=== PATIENT | male | born 1985 | race American Indian/Alaskan Native ===

== ENCOUNTER 2020-02-28 12:34 | Inpatient (IN) | payer BC, OTHER ==
--- NOTE | 2020-02-28 12:57 | Event Note ---
ED Screening Note ED Screening Note: right sided abd pain that began 3 days ago N/V no diarrhea felt like he was having constipation but was able to have a BM with the laxative no abd surgical history no fever, no blood in stool or vomit no pain or swelling in testicles no dysuria PMHx none no allergies non smoker +ETOH, 1-2 a month This initial assessment/diagnostic orders/clinical plan/treatment(s) is/are subject to change based on patients health status, clinical progression and re- assessment by fellow clinical providers in the ED. Further treatment and workup at subsequent clinical providers discretion. Patient/guardian urged not to elope from the ED as their condition may be serious if not clinically assessed and managed. Initial orders include: labs
[2020-02-28] MEDS ORDERED: ONDANSETRON 4 MG/2 ML INJ IV ONE (13:22)
[2020-02-28] MEDS ORDERED: fentaNYL 100 MCG/2 ML INJ IV ONE (13:22)
[2020-02-28] MEDS ORDERED: SODIUM CHLORIDE 0.9% 1000 ML 1,000 ML IV ONE ×2 (13:32→15:35)
[2020-02-28 13:34] LABS: Hematocrit 40.6 % (35.5-45.6); Hemoglobin 12.7 gm/dl (11.8-15.2); Mean Corpuscular HGB Conc 31 % (32-34); Mean Corpuscular Volume 79 fl (84-94); Platelet Count 277 K/mm3 (140-440); Red Blood Count 5.11 M/mm3 (3.65-5.03); Red Cell Distribution Width 14.2 % (13.2-15.2)
--- NOTE | 2020-02-28 13:36 | Emergency Department Report ---
HPI - General Chief Complaint: Abdominal Pain Time Seen by Provider: 02/28/20 12:56 - HPI HPI: Room 6 The patient is a 34-year-old male present with a chief complaint of abdominal pain. The patient states for the past 3 days he has had pain in the right lower quadrant of his abdomen. Patient states the pain is been constant described as sharp and pressure-like in nature. Patient states movement increases the pain. Patient admits to nausea vomiting and anorexia. Patient denies history of fever. Patient currently gives his pain a score of 7/10 ED Past Medical Hx - Past Medical History Previous Medical History?: No - Surgical History Past Surgical History?: Yes Additional Surgical History: Facial surgery - Family History Family history: no significant - Social History Smoking Status: Never Smoker Substance Use Type: None (Denies illicit drug use), Alcohol (Occasional) ED Review of Systems ROS: Stated complaint: ABDOMINAL PAIN Other details as noted in HPI Constitutional: no symptoms reported. denies: fever Eyes: denies: eye pain ENT: denies: throat pain Respiratory: no symptoms reported Cardiovascular: denies: chest pain Endocrine: no symptoms reported Gastrointestinal: abdominal pain, nausea, vomiting Genitourinary: denies: dysuria Musculoskeletal: denies: back pain Neurological: denies: headache Physical Exam - Physical Exam Vital Signs: Vital Signs 02/28/20 02/28/20 12:40 13:06 Temperature 98 F Pulse Rate 126 H Respiratory 18 Rate Blood Pressure 148/95 [Right] O2 Sat by Pulse 96 Oximetry Physical Exam: GENERAL: The patient is well-developed well-nourished male lying on stretcher not appearing to be in acute distress. [] HEENT: Normocephalic. Atraumatic. Extraocular motions are intact. Patient has moist mucous membranes. NECK: Supple. Trachea midline CHEST/LUNGS: Clear to auscultation. There is no respiratory distress noted. HEART/CARDIOVASCULAR: Regular. There is no tachycardia. There is no gallop rub or murmur. ABDOMEN: Abdomen is soft, with tenderness to palpation in the right lower quadrant. Positive Rovsing sign, positive obturator sign. Patient has normal bowel sounds. There is no abdominal distention. SKIN: There is no rash. There is no edema. There is no diaphoresis. NEURO: The patient is awake, alert, and oriented. The patient is cooperative. The patient has normal speech MUSCULOSKELETAL: There is no evidence of acute injury. ED Course Vital Signs 02/28/20 02/28/20 12:40 13:06 Temperature 98 F Pulse Rate 126 H Respiratory 18 Rate Blood Pressure 148/95 [Right] O2 Sat by Pulse 96 Oximetry - Consultations Consultation #1: 02/28/20 13:34 Surgery paged 02/28/20 13:[address] Zaldivar- requests noncontrasted CT abdomen pelvis to be performed expeditiously ED Medical Decision Making - Lab Data Result diagrams: 02/28/20 13:11 02/28/20 13:11 Laboratory Tests 02/28/20 02/28/20 13:11 13:11 WBC 21.8 H RBC 5.11 H Hgb 12.7 Hct 40.6 MCV 79 L MCH 25 L MCHC 31 L RDW 14.2 Plt Count 277 Sodium 130 L Potassium 3.6 Chloride 94.5 L Carbon Dioxide 28 Anion Gap 11 BUN 4 L Creatinine 0.6 L Estimated GFR > 60 BUN/Creatinine Ratio 7 Glucose 297 H Calcium 9.2 Total Bilirubin 1.70 H AST 12 ALT 13 Alkaline Phosphatase 90 Total Protein 7.8 Albumin 3.3 L Albumin/Globulin Ratio 0.7 Lipase 12 L - Radiology Data Radiology results: report reviewed (CT abdomen pelvis), image reviewed (CT abdomen pelvis) [place] [address] Cat Scan Report Signed Patient: ZAHIRA WARNER MR#: [id number] : 1985 Acct:[id number] Age/Sex: 34 / M ADM Date: 02/28/20 Loc: ED At [facility] Dr: Ordering Physician: DEAN PACHECO MD Date of Service: 02/28/20 Procedure(s): CT abdomen pelvis wo con Accession Number(s): [id number] cc: DEAN PACHECO MD CT ABDOMEN AND PELVIS WITHOUT CONTRAST INDICATION / CLINICAL INFORMATION: Right lower quadrant pain TECHNIQUE: Axial CT images were obtained through the abdomen and pelvis without IV contrast. All CT scans at this location are performed using CT dose reduction for ALARA by means of automated exposure control. COMPARISON: None available. FINDINGS: LOWER CHEST: Unremarkable LIVER: There is hepatic steatosis. GALLBLADDER/BILIARY TREE: The bladder is distended with extensive inflammatory changes surrounding the gallbladder. High-density material within the gallbladder likely reflects gallstones. PANCREAS: Unremarkable SPLEEN: Unremarkable ADRENALS: Unremarkable KIDNEYS / URETER: Tiny nonobstructing right renal calculus. No ureteral calculus or hydronephrosis. URINARY BLADDER: Unremarkable REPRODUCTIVE ORGANS: Unremarkable STOMACH / SMALL BOWEL: Stomach and small bowel are normal in caliber. No evidence of bowel inflammation. COLON: There is inflammatory stranding involving the colon at the hepatic flexure, which is favored to be reactive from process in the gallbladder. The appendix is normal in caliber. LYMPH NODES: No significant adenopathy. VASCULATURE: No significant abnormality. OTHER: No free air, free fluid, or focal fluid collection is identified. SKELETAL SYSTEM: No acute osseous findings. IMPRESSION: 1. Findings concerning for acute cholecystitis with Doppler distention and extensive inflammatory changes surrounding the gallbladder. High-density material within the gallbladder most likely represents cholelithiasis. Recommend correlation with right upper quadrant ultrasound. 2. Inflammatory stranding of the colon and hepatic flexure, likely reactive to process in the gallbladder. Signer Name: Dylon Howard MD Signed: 02/28/2020 2:16 PM Workstation Name: [id number] Transcribed By: PAUL Dictated By: DYLON CORREIA MD Electronically Authenticated By: DYLON CORREIA MD Signed Date/Time: 02/28/201415 DD/ 12 TD/TT: - Differential Diagnosis Appendicitis, renal colic, diverticulitis, partial small bowel obstruction Critical care attestation.: If time is entered above; I have spent that time in minutes in the direct care of this critically ill patient, excluding procedure time. ED Disposition Clinical Impression: Acute abdominal pain, Acute cholecystitis, Leukocytosis Disposition: DC-[id number] OP ADMIT IP TO THIS HOSP Is pt being admited?: Yes Does the pt Need Aspirin: No Condition: Fair Time of Disposition: 14:45 (Hospitalist paged (Dr. Johnston))
--- NOTE | 2020-02-28 14:20 | Cat Scan Report ---
CT ABDOMEN AND PELVIS WITHOUT CONTRAST INDICATION / CLINICAL INFORMATION: Right lower quadrant pain TECHNIQUE: Axial CT images were obtained through the abdomen and pelvis without IV contrast. All CT scans at this location are performed using CT dose reduction for ALARA by means of automated exposure control. COMPARISON: None available. FINDINGS: LOWER CHEST: Unremarkable LIVER: There is hepatic steatosis. GALLBLADDER/BILIARY TREE: The bladder is distended with extensive inflammatory changes surrounding th e gallbladder. High-density material within the gallbladder likely reflects gallstones. PANCREAS: Unremarkable SPLEEN: Unremarkable ADRENALS: Unremarkable KIDNEYS / URETER: Tiny nonobstructing right renal calculus. No ureteral calculus or hydronephrosis. URINARY BLADDER: Unremarkable REPRODUCTIVE ORGANS: Unremarkable STOMACH / SMALL BOWEL: Stomach and small bowel are normal in caliber. No evidence of bowel inflammati on. COLON: There is inflammatory stranding involving the colon at the hepatic flexure, which is favored t o be reactive from process in the gallbladder. The appendix is normal in caliber. LYMPH NODES: No significant adenopathy. VASCULATURE: No significant abnormality. OTHER: No free air, free fluid, or focal fluid collection is identified. SKELETAL SYSTEM: No acute osseous findings. IMPRESSION: 1. Findings concerning for acute cholecystitis with Doppler distention and extensive inflammatory kimmie nges surrounding the gallbladder. High-density material within the gallbladder most likely represents cholelithiasis. Recommend correlation with right upper quadrant ultrasound. 2. Inflammatory stranding of the colon and hepatic flexure, likely reactive to process in the gallbla dder. Signer Name: Robinson Howard MD Signed: 02/28/2020 2:16 PM Workstation Name: [id number]
[2020-02-28] MEDS ORDERED: PIPERACIL/TAZOBACTA 4.5/NS 100 4.5 GM/100 ML VIAL IV ONE (14:28)
[2020-02-28 14:30] LABS: Alanine Aminotransferase 13 units/L (7-56); Albumin 3.3 g/dL (3.9-5); Blood Urea Nitrogen 4 mg/dL (9-20); Calcium 9.2 mg/dL (8.4-10.2); Hemolysis Index 4
[2020-02-28 14:39] LABS: BUN/Creatinine Ratio 7
[2020-02-28 14:59] LABS: Basophils % (Manual) 0 % (0.0-1.8); Total Cells Counted 100
[2020-02-28 15:00] LABS: Platelet Estimate Consistent w Auto; RBC Morphology Normal
--- NOTE | 2020-02-28 15:02 | Consultation ---
History of Present Illness Consult date: 02/28/20 Reason for consult: abdominal pain - History of present illness History of present illness: 34 yo morbidly obese BM with 4-5 days of worsening right-sided abd pain assoc with nausea/vomiting. CT with acute cholecystitis. No medical problems Medications and Allergies Allergies Allergy/AdvReac Type Severity Reaction Status Date / Time No Known Allergies Allergy Unverified 02/28/20 12:39 Active Meds: Active Medications Heparin Sodium (Porcine) (Heparin) 5,000 unit SUB-Q PREOP NR Stop: 02/29/20 23:00 Sodium Chloride (Nacl 0.9% 1000 Ml) 1,000 mls @ 999 mls/hr IV BOLUS ONE Stop: 02/28/20 16:35 Piperacillin Sod/Tazobactam Sod (Zosyn/Ns 4.5gm/100ml) 4.5 gm in 100 mls @ 200 mls/hr IV Q8H [place]; Protocol Exam Vital Signs Pulse Resp Pulse Ox 126 H 18 96 02/28/20 12:40 02/28/20 12:40 02/28/20 12:40 - Abdomen Abdomen: Present: soft, tender, bowel sounds normal, other (grossly obese; +TTP right abdomen; +bulge at umbilical region-- too obese to palpate defect; no scars) Results - Labs 02/28/20 13:11 02/28/20 13:11 Abnormal lab results 02/28/20 02/28/20 Range/Units 13:11 13:11 WBC 21.8 H (4.5-11.0) K/mm3 RBC 5.11 H (3.65-5.03) M/mm3 MCV 79 L (84-94) fl MCH 25 L (28-32) pg MCHC 31 L (32-34) % Sodium 130 L (137-145) mmol/L Chloride 94.5 L (98-107) mmol/L BUN 4 L (9-20) mg/dL Creatinine 0.6 L (0.8-1.3) mg/dL Glucose 297 H (75-100) mg/dL Total Bilirubin 1.70 H (0.1-1.2) mg/dL Albumin 3.3 L (3.9-5) g/dL Lipase 12 L (13-60) units/L Diabetes panel 02/28/20 Range/Units 13:11 Sodium 130 L (137-145) mmol/L Potassium 3.6 (3.6-5.0) mmol/L Chloride 94.5 L (98-107) mmol/L Carbon Dioxide 28 (22-30) mmol/L BUN 4 L (9-20) mg/dL Creatinine 0.6 L (0.8-1.3) mg/dL Glucose 297 H (75-100) mg/dL Calcium 9.2 (8.4-10.2) mg/dL AST 12 (5-40) units/L ALT 13 (7-56) units/L Alkaline Phosphatase 90 (35-129) units/L Total Protein 7.8 (6.3-8.2) g/dL Albumin 3.3 L (3.9-5) g/dL Calcium panel 02/28/20 Range/Units 13:11 Calcium 9.2 (8.4-10.2) mg/dL Albumin 3.3 L (3.9-5) g/dL Pituitary panel 02/28/20 Range/Units 13:11 Sodium 130 L (137-145) mmol/L Potassium 3.6 (3.6-5.0) mmol/L Chloride 94.5 L (98-107) mmol/L Carbon Dioxide 28 (22-30) mmol/L BUN 4 L (9-20) mg/dL Creatinine 0.6 L (0.8-1.3) mg/dL Glucose 297 H (75-100) mg/dL Calcium 9.2 (8.4-10.2) mg/dL Adrenal panel 02/28/20 Range/Units 13:11 Sodium 130 L (137-145) mmol/L Potassium 3.6 (3.6-5.0) mmol/L Chloride 94.5 L (98-107) mmol/L Carbon Dioxide 28 (22-30) mmol/L BUN 4 L (9-20) mg/dL Creatinine 0.6 L (0.8-1.3) mg/dL Glucose 297 H (75-100) mg/dL Calcium 9.2 (8.4-10.2) mg/dL Total Bilirubin 1.70 H (0.1-1.2) mg/dL AST 12 (5-40) units/L ALT 13 (7-56) units/L Alkaline Phosphatase 90 (35-129) units/L Total Protein 7.8 (6.3-8.2) g/dL Albumin 3.3 L (3.9-5) g/dL Assessment and Plan 1. Acute cholecystitis-- to OR tomorrow for LC with IOC 2. Umbilical hernia-- repair at time of LC 3. Morbid obesity-- d/w pt regarding the fact that his obesity inc risk of open procedure, complications, recurrent hernia, infection, etc.
--- NOTE | 2020-02-28 16:18 | History and Physical Report ---
History of Present Illness Chief complaint: My stomach hurts History of present illness: 34 YO Male with Obesity Hypoventilation Syndrome presents to ED for evaluation. Patient states that he has experienced abdominal pain over the past 3 days with persistent symptoms over the same timeframe. Patient states that his current pain is 7/10, constant, sharp in nature, pressure-like, worsened with movement, associated with nausea, multiple episodes of vomiting, and diminished oral intake. Patient transported to [facility] via private vehicle for further care and evaluation of the aforementioned symptoms. Patient seen and evaluated in the emergency department. All lab and imaging studies reviewed. Patient underwent CT scan of the abdomen and pelvis which revealed acute cholecystitis. Patient also has additional laboratory findings consistent with sepsis. Patient admitted to surgical floor and initiated on sepsis protocol. Patient denies fever, chills, chest pain, palpitation, productive cough, recent ill contacts, ingestion of food/water from new or different sources, or known exposure to COVID-19. No medication listed at time of admission for reconciliation. No prior admission for review. Surgical team consulted in ED. Past History Past Medical History: other (See HPI) Past Surgical History: Other (Facial surgery) Social history: single. denies: smoking, alcohol abuse, prescription drug abuse Family history: diabetes, hypertension Medications and Allergies Allergies Allergy/AdvReac Type Severity Reaction Status Date / Time No Known Allergies Allergy Unverified 02/28/20 12:39 Active Meds: Active Medications Heparin Sodium (Porcine) (Heparin) 5,000 unit SUB-Q PREOP NR Stop: 02/29/20 23:00 Sodium Chloride (Nacl 0.9% 1000 Ml) 1,000 mls @ 999 mls/hr IV BOLUS ONE Stop: 02/28/20 16:35 Piperacillin Sod/Tazobactam Sod (Zosyn/Ns 4.5gm/100ml) 4.5 gm in 100 mls @ 200 mls/hr IV Q8H [place]; Protocol Review of Systems Constitutional: no weight loss, no weight gain, no fever, no chills Ears, nose, mouth and throat: no ear pain, no ear discharge, no nose pain, no nasal congestion Cardiovascular: no chest pain, no orthopnea, no syncope, no lightheadedness Respiratory: no cough, no cough with sputum, no hemoptysis, no shortness of breath, no dyspnea on exertion Gastrointestinal: abdominal pain, nausea, vomiting, no constipation, no change in bowel habits, no BRBPR, no melena, no hematochezia, no early satiety Genitourinary Male: no dysuria, no discharge, no urinary frequency, no urinary hesitancy, no nocturia Rectal: no pain, no incontinence, no bleeding Musculoskeletal: no neck stiffness, no neck pain, no shooting arm pain, no shooting leg pain, no leg numbness/tingling Integumentary: no rash, no pruritis, no redness, no sores, no wounds, no jaundic e Neurological: no head injury, no transient paralysis, no paralysis, no weakness, no parathesias, no seizures Psychiatric: no anxiety, no change in sleep habits, no sleep disturbances, no insomnia, no hypersomnia, no change in libido, no suicidal ideation Endocrine: no cold intolerance, no heat intolerance, no polyphagia, no polydipsia, no polyuria, no nocturia, no flushing Hematologic/Lymphatic: no easy bruising, no easy bleeding Allergic/Immunologic: no urticaria, no allergic rhinitis Exam - Constitutional Vitals: Temp Pulse Resp BP Pulse Ox 98 F 126 H 18 148/95 96 02/28/20 13:06 02/28/20 12:40 02/28/20 12:40 02/28/20 13:06 02/28/20 12:40 General appearance: Present: mild distress, obese - EENT Eyes: Present: PERRL ENT: hearing intact, clear oral mucosa - Neck Neck: Present: supple, normal ROM - Respiratory Respiratory effort: normal Respiratory: bilateral: CTA - Cardiovascular Heart Sounds: Present: S1 & S2. Absent: rub, click - Extremities Extremities: pulses symmetrical, No edema Peripheral Pulses: within normal limits - Abdominal General gastrointestinal: Present: soft, tender, non-distended, normal bowel sounds Localized gastrointestinal: tender: RUQ Male genitourinary: Present: normal - Integumentary Integumentary: Present: clear, warm, dry - Musculoskeletal Musculoskeletal: gait normal, strength equal bilaterally - Psychiatric Psychiatric: appropriate mood/affect, intact judgment & insight - Neurologic Neurologic: CNII-XII intact, moves all extremities Results - Labs CBC & Chem 7: 02/28/20 13:11 02/28/20 16:31 Labs: Abnormal lab results 02/28/20 02/28/20 Range/Units 13:11 13:11 WBC 21.8 H (4.5-11.0) K/mm3 RBC 5.11 H (3.65-5.03) M/mm3 MCV 79 L (84-94) fl MCH 25 L (28-32) pg MCHC 31 L (32-34) % Seg Neuts % (Manual) 86.0 H (40.0-70.0) % Lymphocytes % (Manual) 8.0 L (13.4-35.0) % Seg Neutrophils # Man 18.7 H (1.8-7.7) K/mm3 Monocytes # (Manual) 1.1 H (0.0-0.8) K/mm3 Sodium 130 L (137-145) mmol/L Chloride 94.5 L (98-107) mmol/L BUN 4 L (9-20) mg/dL Creatinine 0.6 L (0.8-1.3) mg/dL Glucose 297 H (75-100) mg/dL Total Bilirubin 1.70 H (0.1-1.2) mg/dL Albumin 3.3 L (3.9-5) g/dL Lipase 12 L (13-60) units/L Assessment and Plan - Patient Problems (1) Acute cholecystitis Current Visit: No Status: Acute Plan to address problem: CBC, CMP, CT scan abdomen and pelvis, IV antibiotic therapy, IV fluid resuscitation therapy, n.p.o., bowel rest, surgical team consulted. Patient pending surgical intervention as per surgical team. (2) Sepsis Current Visit: Yes Status: Acute Plan to address problem: Sepsis protocol: Chest x-ray, CBC, urinalysis, IV antibiotic therapy, IV fluid resuscitation therapy, monitor urine output every shift, serial lactic acid level, maintain mean arterial blood pressure greater than or equal to 65. (3) Obesity hypoventilation syndrome Current Visit: Yes Status: Acute Plan to address problem: Supplemental oxygen, noninvasive positive pressure ventilation nightly, outpatient bariatric surgery follow-up, outpatient pulmonary follow-up for sleep study, balanced diet, increase physical activity discharge. (4) DVT prophylaxis Current Visit: Yes Status: Acute Plan to address problem: SCD to bilateral lower extremities while in bed, prophylactic heparin
[2020-02-28] MEDS ORDERED: ALBUTEROL 2.5 MG/3 ML NEBU IH PRN (16:19)
[2020-02-28] MEDS ORDERED: ONDANSETRON 4 MG/2 ML INJ IV PRN (16:19)
[2020-02-28] MEDS ORDERED: ACETAMINOPHEN 325 MG TAB PO PRN ×2 (16:19→16:22)
[2020-02-28] MEDS ORDERED: SODIUM CHLORIDE 0.9% 1000 ML IV SOLN IV ONE (17:00)
[2020-02-28 17:14] LABS: Alanine Aminotransferase 12 units/L (7-56); Albumin 2.9 g/dL (3.9-5); Blood Urea Nitrogen 3 mg/dL (9-20); Calcium 8.4 mg/dL (8.4-10.2); Hemolysis Index 10
[2020-02-28 17:16] LABS: BUN/Creatinine Ratio 6
[2020-02-28] MEDS: CEFEPIME/NS 2 GM/100 ML 2 GM/100 ML BAG IV SCH (17:41)
[2020-02-28] MEDS: HYDROmorphone 1 MG/1 ML INJ IV PRN ×2 (18:22→22:45)
[2020-02-28] MEDS: metroNIDAZOLE/NS 500 MG/100 ML 500 MG/100 ML BAG IV SCH (22:46)
[2020-02-29] MEDS: PIPERACIL/TAZOBACTA 4.5/NS 100 4.5 GM/100 ML VIAL IV SCH ×4 (00:12→22:20)
[2020-02-29] MEDS: CEFEPIME/NS 2 GM/100 ML 2 GM/100 ML BAG IV SCH (02:00)
[2020-02-29] MEDS: HYDROmorphone 1 MG/1 ML INJ IV PRN ×2 (04:09→18:00)
[2020-02-29] MEDS: metroNIDAZOLE/NS 500 MG/100 ML 500 MG/100 ML BAG IV SCH (06:12)
[2020-02-29 06:15] LABS: Alanine Aminotransferase 12 units/L (7-56); Albumin 2.9 g/dL (3.9-5); Blood Urea Nitrogen 4 mg/dL (9-20); Hemolysis Index 2
[2020-02-29 06:16] LABS: BUN/Creatinine Ratio 7
[2020-02-29 06:22] LABS: Hematocrit 34.8 % (35.5-45.6); Hemoglobin 11.1 gm/dl (11.8-15.2); Mean Corpuscular HGB Conc 32 % (32-34); Mean Corpuscular Volume 79 fl (84-94); Platelet Count 244 K/mm3 (140-440); Red Blood Count 4.39 M/mm3 (3.65-5.03); Red Cell Distribution Width 14.1 % (13.2-15.2)
[2020-02-29 06:24] LABS: Basophils % (Auto) 0.1 % (0.0-1.8); Eosinophils # (Auto) 0.2 K/mm3 (0.0-0.4); Eosinophils % (Auto) 0.9 % (0.0-4.3); Lymphocytes # (Auto) 1.6 K/mm3 (1.2-5.4); Lymphocytes % (Auto) 7.6 % (13.4-35.0); Monocytes # (Auto) 1.3 K/mm3 (0.0-0.8); Monocytes % (Auto) 6.3 % (0.0-7.3)
[2020-02-29] MEDS ORDERED: HEPARIN 5,000 UNIT/1 ML VIAL SUB-Q NR (09:00)
[2020-02-29] MEDS ORDERED: ACETAMINOPHEN 500 MG TAB ONE (09:45)
[2020-02-29] MEDS ORDERED: GABAPENTIN 300 MG CAP ONE (09:45)
[2020-02-29] MEDS ORDERED: CELECOXIB 200 MG CAP ONE (09:45)
[2020-02-29] MEDS ORDERED: MAGNESIUM OXIDE 400 MG TAB PO ONE (09:46)
[2020-02-29] MEDS ORDERED: MIDAZOLAM 2 MG/2 ML INJ ONE ×2 (09:46→10:48)
[2020-02-29] MEDS ORDERED: LACTATED RINGERS 1,000 ML ONE ×2 (09:49→11:40)
[2020-02-29] MEDS ORDERED: ONDANSETRON 4 MG/2 ML INJ IV PRN (09:50)
[2020-02-29] MEDS ORDERED: HYDROmorphone 1 MG/1 ML INJ IV PRN ×3 (09:50→13:41)
--- NOTE | 2020-02-29 09:52 | Anesthesia Day of Surgery ---
Anesthesia Day of Surgery - Day of Surgery Patient Examined: Yes Patient H&P Reviewed: Yes Patient is NPO: Yes
--- NOTE | 2020-02-29 09:53 | Anesthesia Consultation ---
Anesthesia Consult and Med Hx Date of service: 02/29/20 - Airway Anesthetic Teeth Evaluation: Chipped ROM Head & Neck: Adequate Mental/Hyoid Distance: Adequate Mallampati Class: Class II Intubation Access Assessment: Good - Pre-Operative Health Status ASA Pre-Surgery Classification: ASA3 Proposed Anesthetic Plan: General - Pulmonary Hx Asthma: No Hx Respiratory Symptoms: No (+2FS) COPD: No Hx Pneumonia: No - Cardiovascular System Hx Hypertension: No - Gastrointestinal Hx Gastroesophageal Reflux Disease: Yes (occasional-dietary) - Endocrine Hx End Stage Renal Disease: No Hx Liver Disease: No Hx Non-Insulin Dependent Diabetes: No - Hematic Hx Sickle Cell Disease: No - Other Systems Hx Obesity: Yes (Morbid)
[2020-02-29] MEDS: LACTATED RINGERS 1,000 ML IV SCH (10:00)
[2020-02-29] MEDS ORDERED: BUPIVACAINE/PF (0.25%) 2.5 MG/ML 30 ML VIAL INFILTRATI ONE (10:16)
[2020-02-29] MEDS ORDERED: LIDOCAINE (1%) 10 MG/1 ML VIAL 20 ML MDV ONE (10:16)
[2020-02-29] MEDS ORDERED: HYDROmorphone 1 MG/1 ML INJ ONE ×2 (10:23→12:17)
[2020-02-29] MEDS ORDERED: LIDOCAINE MPF (2%) 20 MG/1 ML VIAL 5 ML ONE (10:23)
[2020-02-29] MEDS ORDERED: ROCURONIUM 50 MG/5 ML INJ IV ONE (10:23)
[2020-02-29] MEDS ORDERED: SUCCINYLCHOLINE CHLORIDE 200 MG/10 ML INJ MDV ONE (10:23)
[2020-02-29] MEDS ORDERED: ONDANSETRON 4 MG/2 ML INJ ONE (10:23)
[2020-02-29] MEDS ORDERED: propofoL 200 MG/20 ML VIAL IV ONE ×2 (10:23→10:47)
[2020-02-29] MEDS ORDERED: dexAMETHasone 20 MG/5 ML VIAL ONE (10:30)
--- NOTE | 2020-02-29 11:11 | Progress Note ---
Assessment and Plan Assessment and plan: 34 YO Male with Obesity Hypoventilation Syndrome presents to ED for evaluation. Patient states that he has experienced abdominal pain over the past 3 days with persistent symptoms over the same timeframe. Patient states that his current pain is 7/10, constant, sharp in nature, pressure-like, worsened with movement, associated with nausea, multiple episodes of vomiting, and diminished oral intake. Patient transported to [facility] via private vehicle for further care and evaluation of the aforementioned symptoms. Patient seen and evaluated in the emergency department. All lab and imaging studies reviewed. Patient underwent CT scan of the abdomen and pelvis which revealed acute cholecystitis. Patient also has additional laboratory findings consistent with sepsis. Patient admitted to surgical floor and initiated on sepsis protocol. Patient denies fever, chills, chest pain, palpitation, productive cough, recent ill contacts, ingestion of food/water from new or different sources, or known exposure to COVID-19. No medication listed at time of admission for reconciliation. No prior admission for review. Surgical team consulted in ED. 02/28: Patient is for OR today. Continue antibiotics, Continue supportive care. MONITOR WBC. Weight loss counselling. Monitor Blood glucose. Check hgb A1C. (1) Acute cholecystitis Current Visit: No Status: Acute Plan to address problem: CBC, CMP, CT scan abdomen and pelvis, IV antibiotic therapy, IV fluid resuscitation therapy, n.p.o., bowel rest, surgical team consulted. Patient pending surgical intervention as per surgical team. (2) Sepsis Current Visit: Yes Status: Acute Plan to address problem: Sepsis protocol: Chest x-ray, CBC, urinalysis, IV antibiotic therapy, IV fluid resuscitation therapy, monitor urine output every shift, serial lactic acid le nate, maintain mean arterial blood pressure greater than or equal to 65. (3) Obesity hypoventilation syndrome Current Visit: Yes Status: Acute Plan to address problem: Supplemental oxygen, noninvasive positive pressure ventilation nightly, outpatient bariatric surgery follow-up, outpatient pulmonary follow-up for sleep study, balanced diet, increase physical activity discharge. (4) DVT prophylaxis Current Visit: Yes Status: Acute Plan to address problem: SCD to bilateral lower extremities while in bed, prophylactic heparin History Interval history: Patient for OR today Hospitalist Physical - Physical exam Narrative exam: General appearance: Present: mild distress, obese - EENT Eyes: Present: PERRL ENT: hearing intact, clear oral mucosa - Neck Neck: Present: supple, normal ROM - Respiratory Respiratory effort: normal Respiratory: bilateral: CTA - Cardiovascular Heart Sounds: Present: S1 & S2. Absent: rub, click - Extremities Extremities: pulses symmetrical, No edema Peripheral Pulses: within normal limits - Abdominal General gastrointestinal: Present: soft, tender, non-distended, normal bowel sounds Localized gastrointestinal: tender: RUQ Male genitourinary: Present: normal - Integumentary Integumentary: Present: clear, warm, dry - Musculoskeletal Musculoskeletal: gait normal, strength equal bilaterally - Psychiatric Psychiatric: appropriate mood/affect, intact judgment & insight - Neurologic Neurologic: CNII-XII intact, moves all extremities - Constitutional Vitals: Temp Pulse Resp BP Pulse Ox 99.4 F 116 H 20 145/73 96 02/29/20 09:30 02/29/20 09:30 02/29/20 09:30 02/29/20 09:30 02/29/20 09:30 General appearance: Present: mild distress, obese Results - Labs CBC & Chem 7: 02/29/20 05:19 02/29/20 05:19 Labs: Laboratory Last Values WBC 20.3 K/mm3 (4.5-11.0) H 02/29/20 05:19 RBC 4.39 M/mm3 (3.65-5.03) 02/29/20 05:19 Hgb 11.1 gm/dl (11.8-15.2) L 02/29/20 05:19 Hct 34.8 % (35.5-45.6) L 02/29/20 05:19 MCV 79 fl (84-94) L 02/29/20 05:19 MCH 25 pg (28-32) L 02/29/20 05:19 MCHC 32 % (32-34) 02/29/20 05:19 RDW 14.1 % (13.2-15.2) 02/29/20 05:19 Plt Count 244 K/mm3 (140-440) 02/29/20 05:19 Lymph % (Auto) 7.6 % (13.4-35.0) L 02/29/20 05:19 [place] % (Auto) 6.3 % (0.0-7.3) 02/29/20 05:19 Eos % (Auto) 0.9 % (0.0-4.3) 02/29/20 05:19 Baso % (Auto) 0.1 % (0.0-1.8) 02/29/20 05:19 Lymph # (Auto) 1.6 K/mm3 (1.2-5.4) 02/29/20 05:19 [place] # (Auto) 1.3 K/mm3 (0.0-0.8) H 02/29/20 05:19 Eos # (Auto) 0.2 K/mm3 (0.0-0.4) 02/29/20 05:19 Baso # (Auto) 0.0 K/mm3 (0.0-0.1) 02/29/20 05:19 Add Manual Diff Complete 02/28/20 13:11 Total Counted 100 02/28/20 13:11 Seg Neutrophils % 85.1 % (40.0-70.0) H 02/29/20 05:19 Seg Neuts % (Manual) 86.0 % (40.0-70.0) H 02/28/20 13:11 Band Neutrophils % 0 % 02/28/20 13:11 Lymphocytes % (Manual) 8.0 % (13.4-35.0) L 02/28/20 13:11 Reactive Lymphs % (Man) 0 % 02/28/20 13:11 Monocytes % (Manual) 5.0 % (0.0-7.3) 02/28/20 13:11 Eosinophils % (Manual) 1.0 % (0.0-4.3) 02/28/20 13:11 Basophils % (Manual) 0 % (0.0-1.8) 02/28/20 13:11 Metamyelocytes % 0 % 02/28/20 13:11 Myelocytes % 0 % 02/28/20 13:11 Promyelocytes % 0 % 02/28/20 13:11 Blast Cells % 0 % 02/28/20 13:11 Nucleated RBC % Not Reportable 02/28/20 13:11 Seg Neutrophils # 17.3 K/mm3 (1.8-7.7) H 02/29/20 05:19 Seg Neutrophils # Man 18.7 K/mm3 (1.8-7.7) H 02/28/20 13:11 Band Neutrophils # 0.0 K/mm3 02/28/20 13:11 Lymphocytes # (Manual) 1.7 K/mm3 (1.2-5.4) 02/28/20 13:11 Abs React Lymphs (Man) 0.0 K/mm3 02/28/20 13:11 Monocytes # (Manual) 1.1 K/mm3 (0.0-0.8) H 02/28/20 13:11 Eosinophils # (Manual) 0.2 K/mm3 (0.0-0.4) 02/28/20 13:11 Basophils # (Manual) 0.0 K/mm3 (0.0-0.1) 02/28/20 13:11 Metamyelocytes # 0.0 K/mm3 02/28/20 13:11 Myelocytes # 0.0 K/mm3 02/28/20 13:11 Promyelocytes # 0.0 K/mm3 02/28/20 13:11 Blast Cells # 0.0 K/mm3 02/28/20 13:11 WBC Morphology Not Reportable 02/28/20 13:11 Hypersegmented Neuts Not Reportable 02/28/20 13:11 Hyposegmented Neuts Not Reportable 02/28/20 13:11 Hypogranular Neuts Not Reportable 02/28/20 13:11 Smudge Cells Not Reportable 02/28/20 13:11 Toxic Granulation Not Reportable 02/28/20 13:11 Toxic Vacuolation Not Reportable 02/28/20 13:11 Dohle Bodies Not Reportable 02/28/20 13:11 Pelger-Huet Anomaly Not Reportable 02/28/20 13:11 Harini Rods Not Reportable 02/28/20 13:11 Platelet Estimate Consistent w auto 02/28/20 13:11 Clumped Platelets Not Reportable 02/28/20 13:11 Plt Clumps, EDTA Not Reportable 02/28/20 13:11 Large Platelets Not Reportable 02/28/20 13:11 Giant Platelets Not Reportable 02/28/20 13:11 Platelet Satelliting Not Reportable 02/28/20 13:11 Plt Morphology Comment Not Reportable 02/28/20 13:11 RBC Morphology Normal 02/28/20 13:11 Dimorphic RBCs Not Reportable 02/28/20 13:11 Polychromasia Not Reportable 02/28/20 13:11 Hypochromasia Not Reportable 02/28/20 13:11 Poikilocytosis Not Reportable 02/28/20 13:11 Anisocytosis Not Reportable 02/28/20 13:11 Microcytosis Not Reportable 02/28/20 13:11 Macrocytosis Not Reportable 02/28/20 13:11 Spherocytes Not Reportable 02/28/20 13:11 Pappenheimer Bodies Not Reportable 02/28/20 13:11 Sickle Cells Not Reportable 02/28/20 13:11 Target Cells Not Reportable 02/28/20 13:11 Tear Drop Cells Not Reportable 02/28/20 13:11 Ovalocytes Not Reportable 02/28/20 13:11 Helmet Cells Not Reportable 02/28/20 13:11 [place] Bodies Not Reportable 02/28/20 13:11 Orgas Rings Not Reportable 02/28/20 13:11 Aubree Cells Not Reportable 02/28/20 13:11 Bite Cells Not Reportable 02/28/20 13:11 Crenated Cell Not Reportable 02/28/20 13:11 Elliptocytes Not Reportable 02/28/20 13:11 Acanthocytes (Spur) Not Reportable 02/28/20 13:11 Rouleaux Not Reportable 02/28/20 13:11 Hemoglobin C Crystals Not Reportable 02/28/20 13:11 Schistocytes Not Reportable 02/28/20 13:11 Malaria parasites Not Reportable 02/28/20 13:11 Avery Bodies Not Reportable 02/28/20 13:11 Hem Pathologist Commnt No 02/28/20 13:11 Sodium 137 mmol/L (137-145) 02/29/20 05:19 Potassium 3.7 mmol/L (3.6-5.0) 02/29/20 05:19 Chloride 102.7 mmol/L (98-107) 02/29/20 05:19 Carbon Dioxide 23 mmol/L (22-30) 02/29/20 05:19 Anion Gap 15 mmol/L 02/29/20 05:19 BUN 4 mg/dL (9-20) L 02/29/20 05:19 Creatinine 0.6 mg/dL (0.8-1.3) L 02/29/20 05:19 Estimated GFR > 60 ml/min 02/29/20 05:19 BUN/Creatinine Ratio 7 % 02/29/20 05:19 Glucose 271 mg/dL (75-100) H 02/29/20 05:19 Lactic Acid 1.40 mmol/L (0.7-2.0) 02/28/20 23:05 Calcium 8.0 mg/dL (8.4-10.2) L 02/29/20 05:19 Total Bilirubin 2.50 mg/dL (0.1-1.2) H 02/29/20 05:19 AST 14 units/L (5-40) 02/29/20 05:19 ALT 12 units/L (7-56) 02/29/20 05:19 Alkaline Phosphatase 92 units/L (35-129) 02/29/20 05:19 Total Protein 6.7 g/dL (6.3-8.2) 02/29/20 05:19 Albumin 2.9 g/dL (3.9-5) L 02/29/20 05:19 Albumin/Globulin Ratio 0.8 % 02/29/20 05:19 Lipase 12 units/L (13-60) L 02/28/20 13:11 Blood Type O POSITIVE 02/28/20 16:30 Antibody Screen Negative 02/28/20 16:30 Reeves/IV: Voiding Method Toilet IV Catheter Type [Left INT / Saline Lock Antecubital] Active Medications - Current Medications Current Medications: Generic Name Dose Route Start Last Admin Trade Name Freq PRN Reason Stop Dose Admin Acetaminophen 650 mg 02/28/20 16:19 Tylenol PO Q4H PRN Pain MILD(1-3)/Fever >100.5/OMER Albuterol 2.5 mg 02/28/20 16:19 Proventil IH Q4H PRN Shortness Of Breath Heparin Sodium (Porcine) 5,000 unit 02/29/20 09:00 02/29/20 10:03 Heparin SUB-Q 02/29/20 23:00 5,000 unit PREOP NR Administration Hydromorphone HCl 0.25 mg 02/28/20 16:22 02/29/20 04:09 Dilaudid IV 0.25 mg Q4H PRN Administration Pain, Moderate (4-6) Hydromorphone HCl 0.25 mg 02/29/20 09:50 Dilaudid IV 02/29/20 13:00 Q10MIN PRN Pain, Moderate (4-6) Hydromorphone HCl 0.5 mg 02/29/20 09:50 Dilaudid IV 02/29/20 13:00 Q10MIN PRN Pain , Severe (7-10) Piperacillin Sod/Tazobactam Sod 4.5 gm in 100 mls @ 200 mls/hr 02/28/20 22:00 02/29/20 07:12 Zosyn/Ns 4.5gm/100ml IV 200 mls/hr Q8H RICHMOND Administration Protocol Metronidazole 500 mg in 100 mls @ 100 mls/hr 02/28/20 22:00 02/29/20 06:12 Flagyl 500 Mg/100 Ml IV 100 mls/hr Q8HR RICHMOND Administration Protocol Lactated Ringer's 1,000 mls @ 125 mls/hr 02/29/20 10:00 02/29/20 10:00 Lactated Ringers IV 125 mls/hr DIRECT RICHMOND Administration Ondansetron HCl 4 mg 02/28/20 16:19 Zofran IV Q8H PRN Nausea And Vomiting Ondansetron HCl 4 mg 02/29/20 09:50 Zofran IV 02/29/20 13:00 ONCE PRN Nausea And Vomiting Sodium Chloride 10 ml 02/28/20 22:00 02/28/20 22:48 Sodium Chloride Flush Syringe 10 Ml IV 10 ml BID RICHMOND Administration Sodium Chloride 10 ml 02/28/20 16:19 Sodium Chloride Flush Syringe 10 Ml IV PRN PRN LINE FLUSH Nutrition/Malnutrition Assess - Dietary Evaluation Nutrition/Malnutrition Findings: Nutrition Notes Start: 02/29/20 10:22 Freq: Status: Active Protocol: Document 02/29/20 10:22 LM (Rec: 02/29/20 10:31 LM [id number]) Nutrition Notes 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 Pt not in room at time of visit. Per H&P pt has decreased oral intake. Pt with no DM dx in chart. Burn Absent Trauma Absent GI Symptoms Nausea,Vomiting Current % PO Negligible Minimum of two criteria No physical signs of malnutrition #1 Nutrition Diagnosis Inadequate oral intake Etiology Acute cholecystitis As Evidenced by Signs and Symptoms Pt NPO Is patient on ventilator? No Is Patient Ambulatory and/or Out of Bed Yes REE-([place]-St. Jeor-ambulatory/OOB) [ 3680.300 NUTR.[id number]] Kcal/Kg value to use for calculation 11 Approximate Energy Requirements Using 2044 kcal/Kg Calculation Used for Recommendations Kcal/kg Additional Notes Protein: 107-134g (0.8-1g/kg using AdjBW 134kg) Fluid: 1ml/kcal Nutrition Intervention Change Diet Order: Diet advancement per MD Goal #1 diet advancement Anticipated Discharge Needs: unable to determine at this time Follow-Up By: 03/02/20 Additional Comments F/U for full assessment, diet advancement, BG
[2020-02-29] MEDS ORDERED: SODIUM CHLORIDE P/F VIAL 10 ML 10 ML ONE (11:15)
[2020-02-29] MEDS ORDERED: SODIUM CHLORIDE P/F VIAL 10 ML 20 ML ONE (11:22)
[2020-02-29] MEDS ORDERED: BUPIVACAINE/PF (0.5%) 5 MG/1 ML 30 ML VIAL INFILTRATI ONE (12:37)
[2020-02-29] MEDS ORDERED: LIDOCAINE (1%) 10 MG/1 ML VIAL 20 ML MDV INFILTRATI ONE (12:38)
[2020-02-29] MEDS ORDERED: SODIUM CHLORIDE 0.9% IRRIG SOLN 2000 ML IR ONE (12:39)
[2020-02-29] MEDS ORDERED: SUGAMMADEX SODIUM 200 MG/2 ML VIAL IV ONE ×2 (12:42→12:43)
[2020-02-29] MEDS ORDERED: oxyCODONE /ACETAMINOPHEN 5-325MG TAB PO PRN (13:30)
[2020-02-29] MEDS ORDERED: HYDROmorphone 2 MG/1 ML INJ IV PRN (13:30)
--- NOTE | 2020-02-29 14:10 | Post Anesthesia Evaluation ---
- Post Anesthesia Evaluation Patient Participated: Yes Airway Patent: Yes Stable Respiratory Function: Yes Nausea/Vomiting: No Temp > 96.8F: Yes Pain Manageable: Yes Adequeate Hydration: Yes Anesthesia Complications: No Block Receding Appropriately: Not Applicable Patient on Ventilator: No
[2020-02-29] MEDS: oxyCODONE /ACETAMINOPHEN 5-325MG TAB PO PRN (17:15)
--- NOTE | 2020-02-29 17:55 | Operative Report ---
STAFF PHYSICIAN: Mohit Zaldivar MD [employer]PER[employer]: Arash Mao MD PREOPERATIVE DIAGNOSES: 1. Severe acute cholecystitis. 2. Umbilical hernia with incarcerated omentum. POSTOPERATIVE DIAGNOSES: 1. Severe acute cholecystitis. 2. Umbilical hernia with incarcerated omentum. OPERATION PERFORMED: 1. Laparoscopic converted to open cholecystectomy. 2. Open umbilical hernia repair. INDICATIONS: A 34-year-old gentleman with approximately 5 days of abdominal pain on right side associated with nausea, vomiting. Has workup consistent with severe acute cholecystitis. The patient is also noted to have significant-sized umbilical hernia with approximately 3-4 cm defect at the umbilicus. The patient has no prior history of surgery. The patient was brought to the operating room urgently. ANESTHESIA: General endotracheal anesthesia. SPECIMEN SENT: Gallbladder. FINDINGS: 1. 4 cm umbilical hernia defect with incarcerated omentum. No evidence of bowel incarceration. 2. Severe acute cholecystitis with gangrenous patches on gallbladder. 3. Unable to perform IOC due to severe inflammation. BLOOD LOSS: 100. COMPLICATIONS: None. DRAINS 15-[place] Arik. DESCRIPTION OF OPERATION: After informed consent was obtained, the patient was taken to the operating room, placed under endotracheal anesthesia. The patient was prepped and draped in standard surgical fashion. Surgical timeout was performed. VT and antibiotic prophylaxis had been given appropriately. A curvilinear incision of a large size was made at the umbilicus in order to have access to fix the hernia. We then encircled the umbilical skin and divided it off the incarcerated omentum. We then used electrocautery and blunt dissection after realizing there was no bowel involvement and dissected off the incarcerated omentum off the fascial edges. Fascial edges were strong and of good quality. The patient had approximately 4 cm de kat umbilical hernia. We then closed this slightly with our stay sutures and then placed a Muriel port and created a pneumoperitoneum. Due to the patient's extremely large size there was not much room to evaluate the area. We were able to take down some inflammatory adhesions of the small bowel and omentum that were on top of the gallbladder. Once we were able to see the gallbladder we noticed that there were patches of gangrene. Of note, it was difficult to even put in the ports due to the patient's large size. I had to use extra-long ports and it was still very dangerous as there was not a giant pneumoperitoneum despite having increased it to 18 mmHg. We then aspirated the gallbladder, got out some bile. We were able to grasp it and retract it. It was difficult due to the patient's very large fatty liver and rib cage area and when we tried to retract it the portion of the gallbladder and the fundus that was gangrene ripped open. We were unable to obtain good visualization with our scope. We were unable to have good exposure and we were unable to retract cephalad and laterally to create a safe environment to take out his gallbladder. Therefore, we converted immediately upon Dr. Mao and I agreeing to right subcostal incision, dissected down through all muscle layers of the abdominal wall and entrance to abdominal cavity was performed without complication. We used all long instruments and [place] parts and created proper retraction, grabbed the gallbladder with ring forceps and dissected down from the top down. We dissected down a fair amount of the gallbladder. We could palpate where the infundibulum was and we actually opened the gallbladder at that point and removed the blocking stone causing acute cholecystitis. We were down right next to the infundibulum, but we could not identify clearly the cystic artery or cystic duct; therefore removed it with a tiny little less than 1 cm cuff, and removed the gallbladder, which officially is a subtotal cholecystectomy, but it was approximately 95-98% of the gallbladder. We did have a spurting 1 mm cystic arterial vessel. It was first cauterized and then we clamped very superficially and tied this off with a 2-0 silk suture and then also did a 2-0 silk tie on the cuff and where the cystic artery was. There was no evidence of bleeding and this was monitored after retraction was released also and there was no bleeding. We irrigated the abdomen out thoroughly with 1 liter normal saline and suctioned free, all of the bile that had been spilled. We looked at other surrounding structures and none had been injured by the retraction. We then put in a 15-[place] drain through a separate stab incision and sewed it in with 0 silk suture. We then closed the abdominal wall in a bulk closure with 5 mm staggered bites ensuring not to harm the underlying structures. We then irrigated the wound out thoroughly, ensured full hemostasis and closed it with sarmad; also closed the epigastric port with sarmad. We then turned attention to the umbilical hernia site, which we closed with a 1 PDS running looped suture also. We then tacked down the umbilical skin with interrupted 2-0 silk sutures x 2. We then irrigated thoroughly and closed the deeper tissues with 3-0 Vicryl and stapled the skin wound also. Sterile dressings were applied. The patient was extubated and taken to recovery room in stable fashion. JOB# [id number] TF/SAMPSON
[2020-03-01] MEDS: PIPERACIL/TAZOBACTA 4.5/NS 100 4.5 GM/100 ML VIAL IV SCH ×3 (05:37→21:09)
[2020-03-01 07:11] LABS: Hematocrit 37.3 % (35.5-45.6); Hemoglobin 11.6 gm/dl (11.8-15.2); Mean Corpuscular HGB Conc 31 % (32-34); Mean Corpuscular Volume 81 fl (84-94); Platelet Count 272 K/mm3 (140-440); Red Blood Count 4.62 M/mm3 (3.65-5.03); Red Cell Distribution Width 14.5 % (13.2-15.2)
[2020-03-01 09:28] LABS: BUN/Creatinine Ratio 14; Blood Urea Nitrogen 7 mg/dL (9-20); Calcium 8.4 mg/dL (8.4-10.2); Hemolysis Index 13
[2020-03-01] MEDS: oxyCODONE /ACETAMINOPHEN 5-325MG TAB PO PRN ×2 (10:23→15:53)
--- NOTE | 2020-03-01 17:40 | Progress Note ---
Assessment and Plan Assessment and plan: 34 YO Male with Obesity Hypoventilation Syndrome presents to ED for evaluation. Patient states that he has experienced abdominal pain over the past 3 days with persistent symptoms over the same timeframe. Patient states that his current pain is 7/10, constant, sharp in nature, pressure-like, worsened with movement, associated with nausea, multiple episodes of vomiting, and diminished oral intake. Patient transported to [facility] via private vehicle for further care and evaluation of the aforementioned symptoms. Patient seen and evaluated in the emergency department. All lab and imaging studies reviewed. Patient underwent CT scan of the abdomen and pelvis which revealed acute cholecystitis. Patient also has additional laboratory findings consistent with sepsis. Patient admitted to surgical floor and initiated on sepsis protocol. Patient denies fever, chills, chest pain, palpitation, productive cough, recent ill contacts, ingestion of food/water from new or different sources, or known exposure to COVID-19. No medication listed at time of admission for reconciliation. No prior admission for review. Surgical team consulted in ED. 02/28: Patient is for OR today. Continue antibiotics, Continue supportive care. MONITOR WBC. Weight loss counselling. Monitor Blood glucose. Check hgb A1C. 03/01: Patient doing well post surgery. WBC improving, will monitor till am and discharge when ok with surgery (1) Acute cholecystitis S/P LAP CAROLANN Current Visit: No Status: Acute Plan to address problem: CBC, CMP, CT scan abdomen and pelvis, IV antibiotic therapy, IV fluid resuscitation therapy, n.p.o., bowel rest, surgical team consulted. Patient pending surgical intervention as per surgical team. (2) Sepsis Current Visit: Yes Status: Acute Plan to address problem: Sepsis protocol: Chest x-ray, CBC, urinalysis, IV antibiotic therapy, IV fluid resuscitation therapy, monitor urine output every shift, serial lactic acid level, maintain mean arterial blood pressure greater than or equal to 65. (3) Obesity hypoventilation syndrome Current Visit: Yes Status: Acute Plan to address problem: Supplemental oxygen, noninvasive positive pressure ventilation nightly, outpatient bariatric surgery follow-up, outpatient pulmonary follow-up for sleep study, balanced diet, increase physical activity discharge. (4) Diabetes mellitus HgbA1c IS 10.9- Patient will benefit from weight loss Insulin therapy on discharge. Counselling about Dm (5)DVT prophylaxis Current Visit: Yes Status: Acute Plan to address problem: SCD to bilateral lower extremities while in bed, prophylactic heparin History Interval history: Patient seen and examined, no new complaints. ambulating without diffculty, tolerating diet Hospitalist Physical - Physical exam Narrative exam: General appearance: Present: obese - EENT Eyes: Present: PERRL ENT: hearing intact, clear oral mucosa - Neck Neck: Present: supple, normal ROM - Respiratory Respiratory effort: normal Respiratory: bilateral: CTA - Cardiovascular Heart Sounds: Present: S1 & S2. Absent: rub, click - Extremities Extremities: pulses symmetrical, No edema Peripheral Pulses: within normal limits - Abdominal General gastrointestinal: Present: soft, tender at surgical site, non-distended, normal bowel sounds Localized gastrointestinal: tender: RUQ Male genitourinary: Present: normal - Integumentary Integumentary: Present: clear, warm, dry - Musculoskeletal Musculoskeletal: gait normal, strength equal bilaterally - Psychiatric Psychiatric: appropriate mood/affect, intact judgment & insight - Neurologic Neurologic: CNII-XII intact, moves all extremities - Constitutional Vitals: Temp Pulse Resp BP Pulse Ox 97.7 F 89 18 116/67 94 03/01/20 16:43 03/01/20 16:43 03/01/20 16:43 03/01/20 16:43 03/01/20 16:43 General appearance: Present: mild distress, obese Results - Labs CBC & Chem 7: 03/01/20 06:54 03/01/20 06:54 Labs: Laboratory Last Values WBC 18.2 K/mm3 (4.5-11.0) H 03/01/20 06:54 RBC 4.62 M/mm3 (3.65-5.03) 03/01/20 06:54 Hgb 11.6 gm/dl (11.8-15.2) L 03/01/20 06:54 Hct 37.3 % (35.5-45.6) 03/01/20 06:54 MCV 81 fl (84-94) L 03/01/20 06:54 MCH 25 pg (28-32) L 03/01/20 06:54 MCHC 31 % (32-34) L 03/01/20 06:54 RDW 14.5 % (13.2-15.2) 03/01/20 06:54 Plt Count 272 K/mm3 (140-440) 03/01/20 06:54 Lymph % (Auto) 7.6 % (13.4-35.0) L 02/29/20 05:19 Kaufman % (Auto) 6.3 % (0.0-7.3) 02/29/20 05:19 Eos % (Auto) 0.9 % (0.0-4.3) 02/29/20 05:19 Baso % (Auto) 0.1 % (0.0-1.8) 02/29/20 05:19 Lymph # (Auto) 1.6 K/mm3 (1.2-5.4) 02/29/20 05:19 Kaufman # (Auto) 1.3 K/mm3 (0.0-0.8) H 02/29/20 05:19 Eos # (Auto) 0.2 K/mm3 (0.0-0.4) 02/29/20 05:19 Baso # (Auto) 0.0 K/mm3 (0.0-0.1) 02/29/20 05:19 Add Manual Diff Complete 02/28/20 13:11 Total Counted 100 02/28/20 13:11 Seg Neutrophils % 85.1 % (40.0-70.0) H 02/29/20 05:19 Seg Neuts % (Manual) 86.0 % (40.0-70.0) H 02/28/20 13:11 Band Neutrophils % 0 % 02/28/20 13:11 Lymphocytes % (Manual) 8.0 % (13.4-35.0) L 02/28/20 13:11 Reactive Lymphs % (Man) 0 % 02/28/20 13:11 Monocytes % (Manual) 5.0 % (0.0-7.3) 02/28/20 13:11 Eosinophils % (Manual) 1.0 % (0.0-4.3) 02/28/20 13:11 Basophils % (Manual) 0 % (0.0-1.8) 02/28/20 13:11 Metamyelocytes % 0 % 02/28/20 13:11 Myelocytes % 0 % 02/28/20 13:11 Promyelocytes % 0 % 02/28/20 13:11 Blast Cells % 0 % 02/28/20 13:11 Nucleated RBC % Not Reportable 02/28/20 13:11 Seg Neutrophils # 17.3 K/mm3 (1.8-7.7) H 02/29/20 05:19 Seg Neutrophils # Man 18.7 K/mm3 (1.8-7.7) H 02/28/20 13:11 Band Neutrophils # 0.0 K/mm3 02/28/20 13:11 Lymphocytes # (Manual) 1.7 K/mm3 (1.2-5.4) 02/28/20 13:11 Abs React Lymphs (Man) 0.0 K/mm3 02/28/20 13:11 Monocytes # (Manual) 1.1 K/mm3 (0.0-0.8) H 02/28/20 13:11 Eosinophils # (Manual) 0.2 K/mm3 (0.0-0.4) 02/28/20 13:11 Basophils # (Manual) 0.0 K/mm3 (0.0-0.1) 02/28/20 13:11 Metamyelocytes # 0.0 K/mm3 02/28/20 13:11 Myelocytes # 0.0 K/mm3 02/28/20 13:11 Promyelocytes # 0.0 K/mm3 02/28/20 13:11 Blast Cells # 0.0 K/mm3 02/28/20 13:11 WBC Morphology Not Reportable 02/28/20 13:11 Hypersegmented Neuts Not Reportable 02/28/20 13:11 Hyposegmented Neuts Not Reportable 02/28/20 13:11 Hypogranular Neuts Not Reportable 02/28/20 13:11 Smudge Cells Not Reportable 02/28/20 13:11 Toxic Granulation Not Reportable 02/28/20 13:11 Toxic Vacuolation Not Reportable 02/28/20 13:11 Dohle Bodies Not Reportable 02/28/20 13:11 Pelger-Huet Anomaly Not Reportable 02/28/20 13:11 Harini Rods Not Reportable 02/28/20 13:11 Platelet Estimate Consistent w auto 02/28/20 13:11 Clumped Platelets Not Reportable 02/28/20 13:11 Plt Clumps, EDTA Not Reportable 02/28/20 13:11 Large Platelets Not Reportable 02/28/20 13:11 Giant Platelets Not Reportable 02/28/20 13:11 Platelet Satelliting Not Reportable 02/28/20 13:11 Plt Morphology Comment Not Reportable 02/28/20 13:11 RBC Morphology Normal 02/28/20 13:11 Dimorphic RBCs Not Reportable 02/28/20 13:11 Polychromasia Not Reportable 02/28/20 13:11 Hypochromasia Not Reportable 02/28/20 13:11 Poikilocytosis Not Reportable 02/28/20 13:11 Anisocytosis Not Reportable 02/28/20 13:11 Microcytosis Not Reportable 02/28/20 13:11 Macrocytosis Not Reportable 02/28/20 13:11 Spherocytes Not Reportable 02/28/20 13:11 Pappenheimer Bodies Not Reportable 02/28/20 13:11 Sickle Cells Not Reportable 02/28/20 13:11 Target Cells Not Reportable 02/28/20 13:11 Tear Drop Cells Not Reportable 02/28/20 13:11 Ovalocytes Not Reportable 02/28/20 13:11 Helmet Cells Not Reportable 02/28/20 13:11 [place] Bodies Not Reportable 02/28/20 13:11 [place] Rings Not Reportable 02/28/20 13:11 [place] Cells Not Reportable 02/28/20 13:11 Bite Cells Not Reportable 02/28/20 13:11 Crenated Cell Not Reportable 02/28/20 13:11 Elliptocytes Not Reportable 02/28/20 13:11 Acanthocytes (Spur) Not Reportable 02/28/20 13:11 Rouleaux Not Reportable 02/28/20 13:11 Hemoglobin C Crystals Not Reportable 02/28/20 13:11 Schistocytes Not Reportable 02/28/20 13:11 Malaria parasites Not Reportable 02/28/20 13:11 A[place] Bodies Not Reportable 02/28/20 13:11 Hem Pathologist Commnt No 02/28/20 13:11 Sodium 136 mmol/L (137-145) L 03/01/20 06:54 Potassium 4.2 mmol/L (3.6-5.0) 03/01/20 06:54 Chloride 102.6 mmol/L (98-107) 03/01/20 06:54 Carbon Dioxide 27 mmol/L (22-30) 03/01/20 06:54 Anion Gap 11 mmol/L 03/01/20 06:54 BUN 7 mg/dL (9-20) L 03/01/20 06:54 Creatinine 0.5 mg/dL (0.8-1.3) L 03/01/20 06:54 Estimated GFR > 60 ml/min 03/01/20 06:54 BUN/Creatinine Ratio 14 % 03/01/20 06:54 Glucose 265 mg/dL (75-100) H 03/01/20 06:54 Hemoglobin A1c 10.9 % (4-6) H 02/29/20 05:19 Lactic Acid 1.40 mmol/L (0.7-2.0) 02/28/20 23:05 Calcium 8.4 mg/dL (8.4-10.2) 03/01/20 06:54 Total Bilirubin 2.50 mg/dL (0.1-1.2) H 02/29/20 05:19 AST 14 units/L (5-40) 02/29/20 05:19 ALT 12 units/L (7-56) 02/29/20 05:19 Alkaline Phosphatase 92 units/L (35-129) 02/29/20 05:19 Total Protein 6.7 g/dL (6.3-8.2) 02/29/20 05:19 Albumin 2.9 g/dL (3.9-5) L 02/29/20 05:19 Albumin/Globulin Ratio 0.8 % 02/29/20 05:19 Lipase 12 units/L (13-60) L 02/28/20 13:11 Blood Type O POSITIVE 02/28/20 16:30 Antibody Screen Negative 02/28/20 16:30 Reeves/IV: Voiding Method Urinal IV Catheter Type [Right INT / Saline Lock Antecubital] IV Catheter Type [Left INT / Saline Lock Antecubital] Active Medications - Current Medications Current Medications: Generic Name Dose Route Start Last Admin Trade Name Freq PRN Reason Stop Dose Admin Acetaminophen 650 mg 02/28/20 16:19 Tylenol PO Q4H PRN Pain MILD(1-3)/Fever >100.5/OMER Albuterol 2.5 mg 02/28/20 16:19 Proventil IH Q4H PRN Shortness Of Breath Hydromorphone HCl 0.25 mg 02/28/20 16:22 02/29/20 18:00 Dilaudid IV 0.25 mg Q4H PRN Administration Pain, Moderate (4-6) Hydromorphone HCl 2 mg 02/29/20 13:30 Dilaudid IV Q4H PRN Pain , Severe (7-10) Piperacillin Sod/Tazobactam Sod 4.5 gm in 100 mls @ 200 mls/hr 02/28/20 22:00 03/01/20 15:08 Zosyn/Ns 4.5gm/100ml IV 200 mls/hr Q8H RICHMOND Administration Protocol Lactated Ringer's 1,000 mls @ 125 mls/hr 02/29/20 10:00 02/29/20 10:00 Lactated Ringers IV 125 mls/hr DIRECT RICHMOND Administration Ondansetron HCl 4 mg 02/28/20 16:19 Zofran IV Q8H PRN Nausea And Vomiting Oxycodone/Acetaminophen 2 tab 02/29/20 13:30 03/01/20 15:53 Percocet 5/325 PO 2 tab Q4H PRN Administration Pain, Moderate (4-6) Oxycodone/Acetaminophen 1 tab 02/29/20 13:30 Percocet 5/325 PO Q4H PRN Pain, Moderate (4-6) Sodium Chloride 10 ml 02/28/20 22:00 02/29/20 22:28 Sodium Chloride Flush Syringe 10 Ml IV 10 ml BID RICHMOND Administration Sodium Chloride 10 ml 02/28/20 16:19 Sodium Chloride Flush Syringe 10 Ml IV PRN PRN LINE FLUSH Nutrition/Malnutrition Assess - Dietary Evaluation Nutrition/Malnutrition Findings: Nutrition Notes Start: 02/29/20 10:22 Freq: Status: Active Protocol: Document 02/29/20 10:22 LM (Rec: 02/29/20 10:31 LM [id number]) Nutrition Notes 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 Pt not in room at time of visit. Per H&P pt has decreased oral intake. Pt with no DM dx in chart. Burn Absent Trauma Absent GI Symptoms Nausea,Vomiting Current % PO Negligible Minimum of two criteria No physical signs of malnutrition #1 Nutrition Diagnosis Inadequate oral intake Etiology Acute cholecystitis As Evidenced by Signs and Symptoms Pt NPO Is patient on ventilator? No Is Patient Ambulatory and/or Out of Bed Yes REE-([place]-ambulatory/OOB) [ 3680.300 [id number]] Kcal/Kg value to use for calculation 11 Approximate Energy Requirements Using 4 kcal/Kg Calculation Used for Recommendations Kcal/kg Additional Notes Protein: 107-134g (0.8-1g/kg using AdjBW 134kg) Fluid: 1ml/kcal Nutrition Intervention Change Diet Order: Diet advancement per MD Goal #1 diet advancement Anticipated Discharge Needs: unable to determine at this time Follow-Up By: 03/02/20 Additional Comments F/U for full assessment, diet advancement, BG
--- NOTE | 2020-03-01 19:04 | Progress Note ---
Assessment and Plan POD#1 Open moriah/open umbilical hernia repair NOTE: pt will keep drain for a couple weeks as he is at high risk for bile leak once severe inflammation goes down. Doing well. Can be d/c'd tomorrow WITHOUT me seeing pt if: 1. bilirubin level down 2. yinka diet/having flatus (no BM necessary) 3. diabetic counseling given 4. ambulating 5. No need for O2-- if needed, can arrange and still send pt home. please send pt home with Naprosyn for 10 days, Percocet 5/325 (25 pills), and a few Phenergan. f/u with me in 2 weeks for staple and drain removal. THANKS! Subjective Date of service: 03/01/20 Patient Reports: Positive: feels better, pain is less, tolerating a regular diet, flatus, bowel movement (ambulating/urinating; no c/o) Objective Vital Signs - 12hr 03/01/20 03/01/20 03/01/20 08:07 11:52 16:43 Temperature 98.3 F 97.7 F 97.7 F Pulse Rate 93 H 93 H 89 Respiratory 18 18 18 Rate Blood Pressure 133/80 115/71 116/67 O2 Sat by Pulse 98 95 94 Oximetry 03/01/20 16:53 Temperature Pulse Rate Respiratory 18 Rate Blood Pressure O2 Sat by Pulse Oximetry - Abdomen soft, tender, bowel sounds normal, other (drsg dry; YANIV-serosang) - Labs 03/01/20 06:54 03/01/20 06:54 Diabetes panel 03/01/20 Range/Units 06:54 Sodium 136 L (137-145) mmol/L Potassium 4.2 (3.6-5.0) mmol/L Chloride 102.6 (98-107) mmol/L Carbon Dioxide 27 (22-30) mmol/L BUN 7 L (9-20) mg/dL Creatinine 0.5 L (0.8-1.3) mg/dL Glucose 265 H (75-100) mg/dL Calcium 8.4 (8.4-10.2) mg/dL Calcium panel 03/01/20 Range/Units 06:54 Calcium 8.4 (8.4-10.2) mg/dL Pituitary panel 03/01/20 Range/Units 06:54 Sodium 136 L (137-145) mmol/L Potassium 4.2 (3.6-5.0) mmol/L Chloride 102.6 (98-107) mmol/L Carbon Dioxide 27 (22-30) mmol/L BUN 7 L (9-20) mg/dL Creatinine 0.5 L (0.8-1.3) mg/dL Glucose 265 H (75-100) mg/dL Calcium 8.4 (8.4-10.2) mg/dL Adrenal panel 03/01/20 Range/Units 06:54 Sodium 136 L (137-145) mmol/L Potassium 4.2 (3.6-5.0) mmol/L Chloride 102.6 (98-107) mmol/L Carbon Dioxide 27 (22-30) mmol/L BUN 7 L (9-20) mg/dL Creatinine 0.5 L (0.8-1.3) mg/dL Glucose 265 H (75-100) mg/dL Calcium 8.4 (8.4-10.2) mg/dL
[2020-03-01 20:42] LABS: Alanine Aminotransferase 21 units/L (7-56); Albumin 2.5 g/dL (3.9-5); Blood Urea Nitrogen 8 mg/dL (9-20); Calcium 8.1 mg/dL (8.4-10.2); Hemolysis Index 3
[2020-03-01 20:45] LABS: BUN/Creatinine Ratio 13
[2020-03-01] MEDS: HYDROmorphone 1 MG/1 ML INJ IV PRN (22:36)
[2020-03-02] MEDS: PIPERACIL/TAZOBACTA 4.5/NS 100 4.5 GM/100 ML VIAL IV SCH ×2 (05:19→15:53)
[2020-03-02] MEDS: oxyCODONE /ACETAMINOPHEN 5-325MG TAB PO PRN ×4 (05:19→19:45)
[2020-03-02] MEDS: LACTATED RINGERS 1,000 ML IV SCH (05:20)
[2020-03-02] MEDS ORDERED: SODIUM CHLORIDE 0.9% 500 ML 500 ML IV ONE (09:43)
[2020-03-02] MEDS ORDERED: INSULIN NPH/REGULAR 70/30 INJ SUB-Q SCH (10:00)
[2020-03-02] MEDS ORDERED: DEXTROSE 50% IN WATER (25GM) 50 ML SYRINGE IV PRN (10:00)
--- NOTE | 2020-03-02 10:52 | Discharge Summary ---
Providers - Providers Date of Admission: 02/28/20 18:28 Attending physician: ANUPAM ROMERO MD 02/28/20 14:29 Consult to Physician [CONS] Urgent Comment: Consulting Provider: MABLE YAO Physician Instructions: Reason For Exam: Acute cholecystitis 03/01/20 19:00 Consult to Dietitian/Nutrition [CONS] Routine Physician Instructions: Reason For Exam: DM Reason for Consult: new diabetes dx Primary care physician: [employer] Hospitalization Condition: Stable Hospital course: 34 YO Male with Obesity Hypoventilation Syndrome presents to ED for evaluation. Patient states that he has experienced abdominal pain over the past 3 days with persistent symptoms over the same timeframe. Patient states that his current pain is 7/10, constant, sharp in nature, pressure-like, worsened with movement, associated with nausea, multiple episodes of vomiting, and diminished oral intake. Patient transported to [facility] via private vehicle for further care and evaluation of the aforementioned symptoms. Patient seen and evaluated in the emergency department. All lab and imaging studies reviewed. Patient underwent CT scan of the abdomen and pelvis which revealed acute cholecystitis. Patient also has additional laboratory findings consistent with sepsis. Patient admitted to surgical floor and initiated on sepsis protocol. Patient denies fever, chills, chest pain, palpitation, productive cough, recent ill contacts, ingestion of food/water from new or different sources, or known exposure to COVID-19. No medication listed at time of admission for reconciliation. No prior admission for review. Surgical team consulted in ED. 02/28: Patient is for OR today. Continue antibiotics, Continue supportive care. MONITOR WBC. Weight loss counselling. Monitor Blood glucose. Check hgb A1C. 03/01: Patient doing well post surgery. WBC improving, will monitor till am and discharge when ok with surgery (1) Acute cholecystitis S/P LAP CAROLANN (2) Sepsis (3) Obesity hypoventilation syndrome (4) Diabetes mellitus HgbA1c IS 10.9- Disposition: - TO HOME OR SELFCARE Time spent for discharge: 35 MINS Exam - Constitutional Vitals: Temp Pulse Resp BP Pulse Ox 98.3 F 78 20 134/83 98 03/02/20 07:06 03/02/20 07:06 03/02/20 07:06 03/02/20 07:06 03/02/20 07:06 Plan Activity: advance as tolerated, fall precautions Diet: low fat, diabetic Special Instructions: record daily weights, record daily BP diary, record blood sugar diary Follow up with: PRIMARY MD KVNG [Primary Care Provider] - 7 Days MABLE YAO MD [Staff Physician] - 7 Days Prescriptions: Amoxicillin/Potassium Clav [Augmentin 875-125 Tablet] 1 each PO BID #10 tablet metFORMIN [Glucophage] 500 mg PO QDAY #30 tab Naproxen [Naprosyn] 375 mg PO BID #10 tablet Insulin NPH/Regular [NovoLIN 70/30] 35 unit SUB-Q BIDDIAB #10 ml oxyCODONE /ACETAMINOPHEN [Percocet 5/325 mg] 1 tab PO Q4H PRN #25 tablet PRN Reason: Pain, Moderate (4-6) Promethazine [Phenergan] 25 mg PO Q8HR PRN #20 tab PRN Reason: Nausea
[2020-03-02 10:54] LABS: Basophils # (Auto) 0.1 K/mm3 (0.0-0.1); Basophils % (Auto) 0.5 % (0.0-1.8); Eosinophils # (Auto) 0.4 K/mm3 (0.0-0.4); Eosinophils % (Auto) 3.2 % (0.0-4.3); Hematocrit 34.6 % (35.5-45.6); Hemoglobin 10.9 gm/dl (11.8-15.2); Lymphocytes # (Auto) 3.6 K/mm3 (1.2-5.4); Lymphocytes % (Auto) 31.5 % (13.4-35.0); Mean Corpuscular HGB Conc 31 % (32-34); Mean Corpuscular Volume 83 fl (84-94); Monocytes # (Auto) 0.7 K/mm3 (0.0-0.8); Monocytes % (Auto) 6.3 % (0.0-7.3); Platelet Count 291 K/mm3 (140-440); Red Blood Count 4.18 M/mm3 (3.65-5.03); Red Cell Distribution Width 14.5 % (13.2-15.2)
[2020-03-02] MEDS ORDERED: INSULIN LISPRO 100 UNIT/ML VIAL 3 mL SUB-Q SCH (11:30)
[2020-03-02 11:57] VITALS: BP 118/73
== END 2020-03-02 20:00 | disposition home or self-care (01) | DRG 854 ==
LOC: ED 12:34 → 3B-SURG 18:28
PROVIDERS: ADMIT Internal Medicine; ATTEND Internal Medicine
PROC: 0FT40ZZ Resection of Gallbladder, Open Approach (ICD-10-PCS; principal; 2020-02-29)
PROC: 0WQF0ZZ Repair Abdominal Wall, Open Approach (ICD-10-PCS; 2020-02-29)
PROC: 0FJ44ZZ Inspection of Gallbladder, Percutaneous Endoscopic Approach (ICD-10-PCS; 2020-02-29)
PROC: 5A09357 Assistance with Respiratory Ventilation, Less than 24 Consecutive Hours, Continuous Positive Airway Pressure (ICD-10-PCS; 2020-02-29)
DX: A41.9 Sepsis, unspecified organism (principal); K81.0 Acute cholecystitis; Z68.43 Body mass index [BMI] 50.0-59.9, adult; E66.2 Morbid (severe) obesity with alveolar hypoventilation; K42.9 Umbilical hernia without obstruction or gangrene; Z83.3 Family history of diabetes mellitus; Z82.49 Family history of ischemic heart disease and other diseases of the circulatory system; K21.9 Gastro-esophageal reflux disease without esophagitis; E11.9 Type 2 diabetes mellitus without complications
CPT/HCPCS: 36415; 74176; 80048; 80053; 82140; 82962; 83036; 83690; 85007; 85025; 85027; 86850; 86900; 86901; 88302; 88304; 90471; 94660; 96374; 96375; 96376; G0378; A4217; J0330; J0692; J1100; J1170; J1644; J1815; J2250; J2405; J2543; J2704; J3010; J7030; J7040; J7120; Q9967